=== PATIENT | female | born 1955 | race Caucasian/White ===

== ENCOUNTER 2021-05-13 16:22 | Inpatient (IN) | payer MEDICARE, OTHER ==
[~2021-05-13] VITALS: Ht 152.4 cm; Wt 59.0 kg
[2021-05-13] MEDS ORDERED: ASPIRIN 81 MG CHEW TAB PO ONE (16:30)
[2021-05-13 17:57] LABS: BASOPHILS # (AUTO) 0.1 (0.0-0.1); BASOPHILS % 1.5 % (0.0-1.0); EOSINOPHILS # (AUTO) 0.5 (0.0-0.4); EOSINOPHILS % 6.4 % (0.0-6.0); HEMATOCRIT 30.2 % (34.2-44.1); HEMOGLOBIN 9.4 g/dL (12.0-16.0); LYMPHOCYTES # (AUTO) 2.7 (1.0-3.2); LYMPHOCYTES % 33.9 % (18.0-39.1); MEAN CORPUSCULAR HEMOGLOBIN 30.7 pg (28-32); MEAN CORPUSCULAR HGB CONC 31.1 g/dL (31-35); MEAN CORPUSCULAR VOLUME 98.7 fL (81-99); MONOCYTES # (AUTO) 1.1 (0.2-0.8); MONOCYTES % 13.4 % (4.4-11.3); NEUTROPHILS # (AUTO) 3.5 (2.1-6.9); NEUTROPHILS % 44.4 % (38.7-80.0); PLATELET COUNT 227 x10e3/uL (140-360); RED BLOOD COUNT 3.06 x10e6/uL (3.6-5.1)
[2021-05-13 18:12] LABS: ALANINE AMINOTRANSFERASE 8 IU/L (0-55); ALBUMIN 2.7 g/dL (3.5-5.0); ALBUMIN/GLOBULIN RATIO 0.6 (0.8-2.0); ALKALINE PHOSPHATASE 119 IU/L (40-150); ANION GAP 20.7 mmol/L (8-16); BLOOD UREA NITROGEN 58 mg/dL (7-26); BUN/CREATININE RATIO 6 (6-25); CALCIUM 8.3 mg/dL (8.4-10.2); CARBON DIOXIDE 21 mmol/L (22-29); CHLORIDE 98 mmol/L (98-107); CREATINE KINASE 37 IU/L (29-168); CREATININE, SERUM 9.15 mg/dL (0.57-1.11); EST GLOMERULAR FILTRATION RATE 4 ML/MIN (60-); GLUCOSE 97 mg/dL (74-118); POTASSIUM 4.7 mmol/L (3.5-5.1); SODIUM 135 mmol/L (136-145)
[2021-05-13 22:44] VITALS: BP 181/68
[2021-05-13 23:00] VITALS: BP 181/68
[2021-05-13] MEDS ORDERED: COLACE100 MG PO (23:19)
[2021-05-13] MEDS ORDERED: PANTOPRAZOLE SO40 MG PO (23:19)
[2021-05-13] MEDS ORDERED: LEVETIRACETAM1000 MG PO (23:19)
[2021-05-13] MEDS ORDERED: HYDRALAZINE HC100 MG PO (23:19)
[2021-05-13] MEDS ORDERED: FLUOXETINE HCL40 MG PO (23:19)
[2021-05-13] MEDS ORDERED: CARVEDILOL25 MG PO (23:19)
[2021-05-13] MEDS ORDERED: HYDROXYZINE HCL25 MG PO (23:19)
[2021-05-13] MEDS ORDERED: HYDRALAZINE HCL25 MG PO (23:19)
[2021-05-13] MEDS ORDERED: MELATONIN3 MG PO (23:19)
[2021-05-13] MEDS ORDERED: ELIQUIS2.5 MG PO (23:19)
[2021-05-13] MEDS ORDERED: ATIVAN0.5 MG PO (23:19)
[2021-05-13] MEDS ORDERED: VITAMIN D310 MCG/1 M (23:21)
[2021-05-13] MEDS ORDERED: CLARITIN10 MG PO (23:21)
[2021-05-13] MEDS ORDERED: VITAMIN D PO (23:23)
[2021-05-13] MEDS ORDERED: FLONASE ALLERG9.9 ML INH (23:24)
[2021-05-13] MEDS ORDERED: HYDROXYZINE HCL 25 MG TAB PO PRN (23:45)
[2021-05-13] MEDS: MELATONIN 3 MG TAB PO SCH (23:55)
[2021-05-13] MEDS: DOCUSATE SODIUM 100 MG CAP PO SCH (23:55)
[2021-05-13] MEDS: LORAZEPAM 0.5 MG TAB PO PRN (23:55)
[2021-05-13] MEDS: LORATADINE 10 MG TAB PO SCH (23:55)
[2021-05-13] MEDS: LEVETIRACETAM 500 MG TAB PO SCH (23:55)
[2021-05-13] MEDS: APIXAB 2.5 MG TABLET PO SCH (23:55)
[2021-05-13] MEDS: CARVEDILOL 12.5 MG TAB PO SCH (23:55)
[2021-05-13] MEDS: HYDRALAZINE HCL 100 MG TABLET PO SCH (23:55)
[2021-05-14] VITALS (7 sets, daily range): BP systolic 105–165; BP diastolic 56–71
[2021-05-14] MEDS: MORPHINE SULFATE INJ 2 MG/ML SYR IV PRN ×4 (03:50→20:35)
[2021-05-14 04:21] LABS: BASOPHILS # (AUTO) 0.1 (0.0-0.1); BASOPHILS % 1.8 % (0.0-1.0); EOSINOPHILS # (AUTO) 0.5 (0.0-0.4); EOSINOPHILS % 6.5 % (0.0-6.0); HEMATOCRIT 29.8 % (34.2-44.1); HEMOGLOBIN 9.1 g/dL (12.0-16.0); LYMPHOCYTES # (AUTO) 2.4 (1.0-3.2); LYMPHOCYTES % 32.6 % (18.0-39.1); MEAN CORPUSCULAR HEMOGLOBIN 30.3 pg (28-32); MEAN CORPUSCULAR HGB CONC 30.5 g/dL (31-35); MEAN CORPUSCULAR VOLUME 99.3 fL (81-99); MONOCYTES % 13.2 % (4.4-11.3); NEUTROPHILS # (AUTO) 3.4 (2.1-6.9); NEUTROPHILS % 45.6 % (38.7-80.0); PLATELET COUNT 234 x10e3/uL (140-360); RED CELL DISTRIBUTION WIDTH 16.2 % (11.7-14.4)
[2021-05-14 04:55] LABS: ALBUMIN 2.6 g/dL (3.5-5.0); ALBUMIN/GLOBULIN RATIO 0.7 (0.8-2.0); ANION GAP 22.1 mmol/L (8-16); CALCIUM 8.4 mg/dL (8.4-10.2); CREATININE, SERUM 9.72 mg/dL (0.57-1.11); POTASSIUM 5.1 mmol/L (3.5-5.1)
[2021-05-14 05:14] LABS: FERRITIN 870.69 ng/mL (4.63-204.00)
[2021-05-14] MEDS: HYDRALAZINE HCL 100 MG TABLET PO SCH ×3 (09:00→20:44)
[2021-05-14] MEDS ORDERED: SODIUM CHLORIDE 0.9% 1000ML 2,000 ML ONE (09:03)
[2021-05-14] MEDS ORDERED: ALBUMIN 25% 12.5GM 0.25 GM/ML BTL IV PRN (11:45)
[2021-05-14] MEDS ORDERED: HEPARIN SOD (PORCINE) 1000 UNIT/ML SDV IV PRN (11:45)
[2021-05-14] MEDS ORDERED: SODIUM CHLORIDE 0.9% 250ML 500 ML IV PRN (11:45)
[2021-05-14] MEDS ORDERED: SODIUM CHLORIDE 0.9% 1000ML 2,000 ML IV PRN (11:45)
[2021-05-14] MEDS: PANTOPRAZOLE SOD 40 MG TABEC PO SCH (13:48)
[2021-05-14] MEDS: LEVETIRACETAM 500 MG TAB PO SCH ×2 (13:51→16:48)
[2021-05-14] MEDS: FLUOXETINE HCL 20 MG CAP PO SCH (13:51)
[2021-05-14] MEDS: APIXAB 2.5 MG TABLET PO SCH ×2 (13:51→16:48)
[2021-05-14] MEDS: CARVEDILOL 12.5 MG TAB PO SCH ×2 (13:51→16:48)
[2021-05-14] MEDS: LORAZEPAM 0.5 MG TAB PO PRN ×2 (17:47→23:54)
[2021-05-14] MEDS: LORATADINE 10 MG TAB PO SCH (20:44)
[2021-05-14] MEDS: DOCUSATE SODIUM 100 MG CAP PO SCH (20:44)
[2021-05-14] MEDS: MELATONIN 3 MG TAB PO SCH (20:45)
[2021-05-15] VITALS (9 sets, daily range): BP systolic 107–146; BP diastolic 55–70
[2021-05-15 05:34] LABS: BASOPHILS # (AUTO) 0.1 (0.0-0.1); BASOPHILS % 1.4 % (0.0-1.0); EOSINOPHILS # (AUTO) 0.3 (0.0-0.4); EOSINOPHILS % 4.4 % (0.0-6.0); HEMATOCRIT 28.1 % (34.2-44.1); HEMOGLOBIN 8.7 g/dL (12.0-16.0); LYMPHOCYTES # (AUTO) 2.2 (1.0-3.2); LYMPHOCYTES % 30.1 % (18.0-39.1); MEAN CORPUSCULAR HEMOGLOBIN 30.9 pg (28-32); MEAN CORPUSCULAR VOLUME 99.6 fL (81-99); MONOCYTES % 13.8 % (4.4-11.3); NEUTROPHILS # (AUTO) 3.7 (2.1-6.9); NEUTROPHILS % 50.2 % (38.7-80.0); PLATELET COUNT 184 x10e3/uL (140-360); RED BLOOD COUNT 2.82 x10e6/uL (3.6-5.1); RED CELL DISTRIBUTION WIDTH 16.5 % (11.7-14.4)
[2021-05-15 06:15] LABS: ALBUMIN 2.6 g/dL (3.5-5.0); ALBUMIN/GLOBULIN RATIO 0.7 (0.8-2.0); ANION GAP 16.2 mmol/L (8-16); CALCIUM 8.1 mg/dL (8.4-10.2); CREATININE, SERUM 6.21 mg/dL (0.57-1.11); MAGNESIUM 1.5 MG/DL (1.3-2.1); POTASSIUM 4.2 mmol/L (3.5-5.1)
[2021-05-15] MEDS: PANTOPRAZOLE SOD 40 MG TABEC PO SCH (08:25)
[2021-05-15] MEDS: LEVETIRACETAM 500 MG TAB PO SCH ×2 (08:26→16:33)
[2021-05-15] MEDS: HYDRALAZINE HCL 100 MG TABLET PO SCH ×3 (08:26→20:24)
[2021-05-15] MEDS: APIXAB 2.5 MG TABLET PO SCH ×2 (08:26→16:33)
[2021-05-15] MEDS: CARVEDILOL 12.5 MG TAB PO SCH ×2 (08:26→16:33)
[2021-05-15] MEDS: FLUOXETINE HCL 20 MG CAP PO SCH (08:26)
[2021-05-15] MEDS ORDERED: SODIUM CHLORIDE 0.9% 1000ML 2,000 ML ONE (10:02)
[2021-05-15] MEDS: DEXAMETHASONE SOD PHOS INJ 4 MG/ML SDV IV SCH ×2 (14:17→20:24)
[2021-05-15] MEDS: CARBAMAZEPINE 200 MG TAB PO SCH ×2 (16:33→20:24)
[2021-05-15] MEDS: MELATONIN 3 MG TAB PO SCH (20:24)
[2021-05-15] MEDS: LORATADINE 10 MG TAB PO SCH (20:24)
[2021-05-15] MEDS: DOCUSATE SODIUM 100 MG CAP PO SCH (20:27)
[2021-05-15] MEDS: LORAZEPAM 0.5 MG TAB PO PRN (20:33)
[2021-05-16] VITALS (7 sets, daily range): BP systolic 122–160; BP diastolic 56–74
[2021-05-16] MEDS: APIXAB 2.5 MG TABLET PO SCH ×2 (08:55→16:35)
[2021-05-16] MEDS: DEXAMETHASONE SOD PHOS INJ 4 MG/ML SDV IV SCH ×2 (08:55→20:34)
[2021-05-16] MEDS: HYDRALAZINE HCL 100 MG TABLET PO SCH ×3 (08:55→20:35)
[2021-05-16] MEDS: FLUOXETINE HCL 20 MG CAP PO SCH (08:55)
[2021-05-16] MEDS: CARBAMAZEPINE 200 MG TAB PO SCH ×3 (08:55→20:34)
[2021-05-16] MEDS: LEVETIRACETAM 500 MG TAB PO SCH ×2 (08:55→16:35)
[2021-05-16] MEDS: PANTOPRAZOLE SOD 40 MG TABEC PO SCH (08:55)
[2021-05-16] MEDS: CARVEDILOL 12.5 MG TAB PO SCH ×2 (08:55→16:35)
[2021-05-16] MEDS: DOCUSATE SODIUM 100 MG CAP PO SCH (20:34)
[2021-05-16] MEDS: MELATONIN 3 MG TAB PO SCH (20:34)
[2021-05-16] MEDS: LORATADINE 10 MG TAB PO SCH (20:34)
[2021-05-16] MEDS: LORAZEPAM 0.5 MG TAB PO PRN (20:40)
[2021-05-17 00:25] VITALS: BP 141/69
[2021-05-17 05:36] VITALS: BP 155/72
[2021-05-17 09:00] VITALS: BP 158/71
[2021-05-17 09:45] VITALS: BP 158/71
[2021-05-17] MEDS ORDERED: CARBAMAZEPINE200 MG PO (11:48)
[2021-05-17 12:06] VITALS: BP 136/71
[2021-05-17] MEDS: PANTOPRAZOLE SOD 40 MG TABEC PO SCH (13:07)
[2021-05-17] MEDS: CARBAMAZEPINE 200 MG TAB PO SCH (13:08)
[2021-05-17] MEDS: FLUOXETINE HCL 20 MG CAP PO SCH (13:08)
[2021-05-17] MEDS: HYDRALAZINE HCL 100 MG TABLET PO SCH (13:08)
[2021-05-17] MEDS: APIXAB 2.5 MG TABLET PO SCH (13:08)
[2021-05-17] MEDS: CARVEDILOL 12.5 MG TAB PO SCH (13:08)
[2021-05-17] MEDS: LEVETIRACETAM 500 MG TAB PO SCH (13:08)
[2021-05-17] MEDS ORDERED: HEPARIN 500 UNITS/5ML MDV INJ ONE (13:45)
== END 2021-05-17 14:42 | disposition hospice, home (50) | DRG 100 ==
LOC: ER 16:26 → ERHOLD 19:52 → MED/SURG2 22:44 → OBSVTOIN 05-14 10:08
PROVIDERS: ADMIT Internal Medicine; ATTEND Internal Medicine
PROC: 5A1D70Z Performance of Urinary Filtration, Intermittent, Less than 6 Hours Per Day (ICD-10-PCS; principal; 2021-05-14)
DX: G40.509 Epileptic seizures related to external causes, not intractable, without status epilepticus (principal); N18.6 End stage renal disease; G93.6 Cerebral edema; I12.0 Hypertensive chronic kidney disease with stage 5 chronic kidney disease or end stage renal disease; C79.31 Secondary malignant neoplasm of brain; C64.9 Malignant neoplasm of unspecified kidney, except renal pelvis; C78.02 Secondary malignant neoplasm of left lung; C78.01 Secondary malignant neoplasm of right lung; E11.22 Type 2 diabetes mellitus with diabetic chronic kidney disease; Z99.2 Dependence on renal dialysis; Z90.5 Acquired absence of kidney; Z08 Encounter for follow-up examination after completed treatment for malignant neoplasm; K74.60 Unspecified cirrhosis of liver; Z86.718 Personal history of other venous thrombosis and embolism; Z20.822 Contact with and (suspected) exposure to COVID-19
CPT/HCPCS: 36415; 70450; 70551; 71250; 80053; 82550; 82553; 82607; 82728; 82746; 83540; 83735; 84466; 84484; 85025; 86704; 86707; 87340; 87350; 90962; 93005; 99284; G0378; J1100; J1644; J2270; J7030; U0002